=== PATIENT | male | born 1995 | race Caucasian/White ===

== ENCOUNTER 2017-03-11 00:21 | Emergency (ER) | payer MEDICAID, OTHER ==
[~2017-03-11] VITALS: Ht 165.1 cm; Wt 100.0 kg
[2017-03-11 03:45] VITALS: BP 128/75
[2017-03-11] MEDS ORDERED: KETOROLAC TROMETHAMINE 60 MG/2 ML VIAL IM ONE (03:45)
== END 2017-03-11 04:06 | disposition home or self-care (01) ==
LOC: EMS 00:22
DX: S39.012A Strain of muscle, fascia and tendon of lower back, initial encounter (principal); I10 Essential (primary) hypertension; X58.XXXA Exposure to other specified factors, initial encounter; Y93.89 Activity, other specified; Y92.89 Other specified places as the place of occurrence of the external cause; Y99.8 Other external cause status
CPT/HCPCS: 96372; 99283; J1885